=== PATIENT | male | born 1925 | race Caucasian/White ===

== ENCOUNTER 2016-10-27 13:14 | Outpatient (RCR) | payer OTHER ==
--- OUTSIDE RECORDS SUMMARY | 2016-09-21 13:51 | XMS REPORT | Continuity of Care Document ---
Author Author [facility] Organization [facility] Address Unknown Phone Unavailable Support Name Relationship Address Phone ZOHREH MENDIOLA MD Caregiver [id number] [place] [address] [place] Next Of Kin [address] [address] Insurance Providers Payer Name Policy Number Subscriber Name Relationship Merna [id number] Brenda Zhong 20 Self / Same As Patient Problems No known problems or medical conditions. Medications No known medications. Social History Social History Problem Response Recorded Date/Time Recent Foreign Travel No 09/24/2014 9:57am Hospital Discharge Instructions No hospital discharge instructions. Plan of Care No plan of care. Functional Status No functional status results. Allergies, Adverse Reactions, Alerts No known allergies. Immunizations No immunization records. Vital Signs No known vital signs results. Results No known relevant diagnostic tests, laboratory data and/or discharge summary. Procedures No known history of procedures. Encounters Encounter Location Date/Time Discharged Rec[facility]ring [facility] 12/18/14 2:32pm
== END 2016-12-20 | disposition home or self-care (01) ==
LOC: ONC 13:14
PROVIDERS: ATTEND Radiology Radiation Oncology
DX: Z51.0 Encounter for antineoplastic radiation therapy (principal); C44.211 Basal cell carcinoma of skin of unspecified ear and external auricular canal
CPT/HCPCS: 77290; 77295; 77332; 77334; 77417; 77470; 99212